=== PATIENT | female | born 1960 | race African-American/Black ===

== ENCOUNTER 2017-12-21 11:37 | Inpatient (IN) | payer OTHER ==
[2017-12-21 13:03] VITALS: BMI 18.3
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
[2017-12-21] MEDS ORDERED: MAGNESIUM CITRATE 300 ML BOTTLE PO PRN (19:10)
[2017-12-21] MEDS ORDERED: LOPERAMIDE HCL 2 MG CAPSULE PO PRN (19:10)
[2017-12-21] MEDS ORDERED: NICOTINE POLACRILEX 4 MG GUM BC PRN (19:10)
[2017-12-21] MEDS ORDERED: ACETAMINOPHEN 325 MG TABLET (FP) PO PRN (19:10)
[2017-12-21] MEDS ORDERED: MENTHOL/PHENOL 1 EACH UD MM PRN (19:10)
[2017-12-21] MEDS ORDERED: IBUPROFEN 400 MG TABLET (FP) PO PRN (19:10)
[2017-12-21] MEDS ORDERED: guaiFENesin/D-METHORPHAN HB 10 ML UNIT-DOSE CUPS PO PRN (19:10)
[2017-12-21] MEDS ORDERED: MAG HYDROX/AL HYDROX/SIMETH 30 ML UNIT-DOSE CUP PO PRN (19:10)
[2017-12-21] MEDS ORDERED: P-EPHED 60MG/TRIPROLIDI 2.5MG TABLET PO PRN (19:10)
[2017-12-21] MEDS ORDERED: hydrOXYzine PAMOATE 50 MG CAPSULE (FP) PO PRN (19:10)
[2017-12-21] MEDS ORDERED: chlordiazePOXIDE HCL 25 MG CAPSULE PO PRN (19:10)
[2017-12-21] MEDS ORDERED: chlordiazePOXIDE HCL 25 MG CAPSULE PO ONE (19:10)
[2017-12-21] MEDS ORDERED: MAGNESIUM HYDROX 2400MG/30ML ORAL SUSPENSION 30 ML CUP PO PRN (19:10)
[2017-12-21] MEDS: chlordiazePOXIDE HCL 25 MG CAPSULE PO SCH (23:27)
[2017-12-21] MEDS: cloNIDine HCL 0.1 MG TABLET PO SCH (23:27)
[2017-12-21] MEDS: ALBUTEROL SO4 18 GM HFA INHALER IH SCH (23:28)
[2017-12-21] MEDS: THIAMINE HCL 100 MG TABLET (FP) PO SCH (23:28)
[2017-12-21 23:32] LABS: URINE APPEARANCE CLEAR; URINE BILIRUBIN NEGATIVE (NEGATIVE); URINE BLOOD NEGATIVE (NEGATIVE); URINE COLOR YELLOW; URINE GLUCOSE (UA) NEGATIVE (NEGATIVE); URINE KETONE NEGATIVE (NEGATIVE); URINE LEUK ESTERASE NEGATIVE (NEGATIVE); URINE NITRITE NEGATIVE (NEGATIVE); URINE UROBILINOGEN NEGATIVE mg/dL (0.2-1.0)
[2017-12-21 23:51] LABS: URINE PROTEIN 1+ (NEGATIVE)
[2017-12-21 23:58] LABS: EPI CELLS RARE /HPF (FEW); URINE BACTERIA RARE /hpf (NONE SEEN)
[2017-12-22] MEDS: chlordiazePOXIDE HCL 25 MG CAPSULE PO SCH ×5 (05:41→22:27)
[2017-12-22] MEDS: ALBUTEROL SO4 18 GM HFA INHALER IH SCH ×5 (05:41→22:27)
[2017-12-22] MEDS: amLODIPine BESYLATE 10 MG TABLET (FP) PO SCH (09:11)
[2017-12-22] MEDS: cloNIDine HCL 0.1 MG TABLET PO SCH ×2 (09:11→22:27)
[2017-12-22 10:03] LABS: HEMATOCRIT 38.4 % (32.4-45.2); HEMOGLOBIN 12.8 GM/dL (10.7-15.3); MCH 34.1 pg (25.7-33.7); MCHC 33.4 g/dl (32.0-36.0); MEAN CELL VOLUME 102.2 fl (80-96); MEAN PLT VOLUME 9.9 fl (7.5-11.1); PLATELET COUNT 122 K/MM3 (134-434); RBC 3.75 M/mm3 (3.60-5.2); RDW 12.2 % (11.6-15.6); WHITE BLOOD COUNT 4.9 K/mm3 (4.0-10.0)
[2017-12-22 10:17] LABS: CHLORIDE 104 mmol/L (98-107); POTASSIUM 3.9 mmol/L (3.5-5.1); SODIUM 140 mmol/L (136-145)
[2017-12-22 10:36] LABS: ALBUMIN 2.9 g/dl (3.4-5.0); ALK PHOS 66 U/L (45-117); ANION GAP 7 (8-16); BILIRUBIN,TOTAL 0.5 mg/dL (0.2-1.0); BLOOD UREA NITROGEN 19 mg/dL (7-18); CALCIUM 8.1 mg/dL (8.5-10.1); CO2 29 mmol/L (21-32); CREATININE 1.1 mg/dL (0.55-1.02); GLUCOSE,RANDOM 96 mg/dL (74-106); SGOT/AST 52 U/L (15-37); SGPT/ALT 47 U/L (12-78); TOT PROT 8.1 g/dl (6.4-8.2)
[2017-12-22] MEDS: ATAZANAVIR SO4 300 MG CAPSULE PO SCH (10:59)
[2017-12-22] MEDS: PRENATAL VITAMINS W/ FOLIC ACID TABLET (FP) PO SCH (10:59)
[2017-12-22] MEDS: NICOTINE 21 MG/24 HOURS TOPICAL PATCH TD SCH (11:00)
[2017-12-22] MEDS: EMTRICITABINE 200MG/TENOFOVIR 300MG PO SCH (11:04)
[2017-12-22] MEDS: RITONAVIR 100 MG TABLET PO SCH (11:04)
--- NOTE | 2017-12-22 12:24 | EKG ---
Test Reason : Blood Pressure : / mmHG Vent. Rate : 067 BPM Atrial Rate : 067 BPM P-R Int : 130 ms QRS Dur : 102 ms QT Int : 458 ms P-R-T Axes : 070 058 069 degrees QTc Int : 483 ms SINUS RHYTHM WITH OCCASIONAL PREMATURE VENTRICULAR COMPLEXES INCOMPLETE RIGHT BUNDLE BRANCH BLOCK PROLONGED QT ABNORMAL ECG Confirmed by MD DOROTHY, SHERRELL ([id number]) on 12/22/2017 12:24:30 PM Referred By: Confirmed By:SHERRELL DE LA CRUZ MD
--- NOTE | 2017-12-22 12:27 | EKG ---
Test Reason : Blood Pressure : / mmHG Vent. Rate : 053 BPM Atrial Rate : 053 BPM P-R Int : 138 ms QRS Dur : 078 ms QT Int : 454 ms P-R-T Axes : 065 059 043 degrees QTc Int : 426 ms SINUS BRADYCARDIA NONSPECIFIC T WAVE ABNORMALITY ABNORMAL ECG NO PREVIOUS ECGS AVAILABLE Confirmed by MD DOROTHY, SHERRELL ([id number]) on 12/22/2017 12:26:50 PM Referred By: Confirmed By:SHERRELL DE LA CRUZ MD
[2017-12-22] MEDS ORDERED: METHADONE HCL 10 MG TABLET (FOR DETOX USE ONLY) PO ONE (13:10)
--- NOTE | 2017-12-22 13:19 | PN ---
[facility] CIWA - CIWA Score Nausea/Vomitin Muscle Tremors: 3 Anxiety: 3 Agitation: 4-Moderately Restless Paroxysmal Sweats: 3 Orientation: 0-Oriented Tacttile Disturbances: 0-None Auditory Disturbances: 0-None Visual Disturbances: 0-None Headache: 0-None Present CIWA-Ar Total Score: 16 S COWS - Scale Resting Pulse: 0= [place] 80 or Below Sweatin=Flushed/Facial Moisture Restless Observation: 3= Extraneous Movement Pupil Size: 0= Normal to Room Light Bone or Joint Aches: 1= Mild Discomfort Runny Nose/ Eye Tearin= Nasal Congestion GI Upset > 30mins: 1= Stomach Cramp Tremor Observation of Outstretched Hands: 2= Slight Tremor Visible Yawning Observation: 0= None Anxiety or Irritability: 2=Irritable/Anxious Goose Flesh Skin: 0=Smooth Skin COWS Score: 12 [facility] Progress Note (SOAP) Subjective: anxious tremors restless Objective: 12/22/17 13:17 Vital Signs Temperature 97.9 F 12/22/17 11:15 Pulse Rate 79 12/22/17 11:15 Respiratory Rate 20 12/22/17 11:15 Blood Pressure 148/108 12/22/17 11:15 O2 Sat by Pulse Oximetry (%) Laboratory Last Values WBC 4.9 K/mm3 (4.0-10.0) 12/22/17 06:06 RBC 3.75 M/mm3 (3.60-5.2) 12/22/17 06:06 Hgb 12.8 GM/dL (10.7-15.3) 12/22/17 06:06 Hct 38.4 % (32.4-45.2) 12/22/17 06:06 MCV 102.2 fl (80-96) H 12/22/17 06:06 MCH 34.1 pg (25.7-33.7) H 12/22/17 06:06 MCHC 33.4 g/dl (32.0-36.0) 12/22/17 06:06 RDW 12.2 % (11.6-15.6) 12/22/17 06:06 Plt Count 122 K/MM3 (134-434) L 12/22/17 06:06 MPV 9.9 fl (7.5-11.1) D 12/22/17 06:06 Sodium 140 mmol/L (136-145) 12/22/17 06:06 Potassium 3.9 mmol/L (3.5-5.1) 12/22/17 06:06 Chloride 104 mmol/L (98-107) 12/22/17 06:06 Carbon Dioxide 29 mmol/L (21-32) 12/22/17 06:06 Anion Gap 7 (8-16) L 12/22/17 06:06 BUN 19 mg/dL (7-18) H 12/22/17 06:06 Creatinine 1.1 mg/dL (0.55-1.02) H 12/22/17 06:06 Creat Clearance w eGFR 51.02 (>60) 12/22/17 06:06 Random Glucose 96 mg/dL (74-106) 12/22/17 06:06 Calcium 8.1 mg/dL (8.5-10.1) L 12/22/17 06:06 Total Bilirubin 0.5 mg/dL (0.2-1.0) 12/22/17 06:06 AST 52 U/L (15-37) H 12/22/17 06:06 ALT 47 U/L (12-78) 12/22/17 06:06 Alkaline Phosphatase 66 U/L (45-117) 12/22/17 06:06 Total Protein 8.1 g/dl (6.4-8.2) 12/22/17 06:06 Albumin 2.9 g/dl (3.4-5.0) L 12/22/17 06:06 Urine Color Yellow 12/21/17 23:13 Urine Appearance Clear 12/21/17 23:13 Urine pH 5.0 (5.0-8.0) 12/21/17 23:13 Ur Specific [place] 1.010 (1.001-1.035) 12/21/17 23:13 Urine Protein 1+ (NEGATIVE) H 12/21/17 23:13 Urine Glucose (UA) Negative (NEGATIVE) 12/21/17 23:13 Urine Ketones Negative (NEGATIVE) 12/21/17 23:13 Urine Blood Negative (NEGATIVE) 12/21/17 23:13 Urine Nitrite Negative (NEGATIVE) 12/21/17 23:13 Urine Bilirubin Negative (NEGATIVE) 12/21/17 23:13 Urine Urobilinogen Negative mg/dL (0.2-1.0) 12/21/17 23:13 Ur Leukocyte Esterase Negative (NEGATIVE) 12/21/17 23:13 Urine WBC (Auto) 2 /hpf (3-5) 12/21/17 23:13 Urine RBC (Auto) 1 /hpf (0-3) 12/21/17 23:13 Ur Epithelial Cells Rare /HPF (FEW) 12/21/17 23:13 Urine Bacteria Rare /hpf (NONE SEEN) 12/21/17 23:13 RPR Titer Nonreactive (NONREACTIVE) 12/22/17 06:06 labs noted. Assessment: 12/22/17 13:18 withdrawal sx Plan: continue detox methadone regime included, amended as necessary repeat Bp
--- NOTE | 2017-12-22 17:59 | CONSULT ---
[facility] Psychiatric Consult - Data Date of interview: 12/22/17 Admission source: [facility] Identifying data: Readmission to [facility] for this 57 y/o AA female seeking detox treatment on for alcohol and opioid dependence.Patient is , a mother of four,domiciled,unemployed and supported on SSI benefits. Substance Abuse History: Confirmed by patient in this session.Details in current [facility] report : Smoking history: Current every day smoker. Have you smoked in the past 12 months: Yes. Aproximately how many cigarettes per day: 20. Hx Chewing Tobacco Use: No. Initiated information on smoking cessation: Yes. 'Breaking Loose' booklet given: 12/21/17. - Substance & Tx. History. Hx Alcohol Use: Yes. Hx Substance Use: Yes. Substance Use Type: Heroin. Hx Substance Use Treatment: Yes (Last tx at [facility] 2012). - Substances Abused. Alcohol. Route: Oral. Frequency: Daily. Amount used: BEER- 3 SIX PACKS,. Age of first use: 14. Date of Last Use: 12/21/17. Heroin. Route: Inhalation. Frequency: Daily. Amount used: 12 BAGS. Age of first use: 12. Date of Last Use: 12/21/17 Medical History: Hepatitis C,HIV infection (on ART medications),hypertension, bronchial asthma,lower back pain and a history of positive PPD.Noted report of cholecystectomy. Psychiatric History: History of multiple psychiatric hospitalizations ([facility]) .Diagnosed with Bipolar Disorder.Patient declares that she has not been rehospitalizaed for many years.Last took psychotropic medications (zoloft, olanzapine) six years ago,according to own account.Ms Monroy denies history of suicide attempts. Physical/Sexual Abuse/Trauma History: Patient denies. Additional Comment: Urine Drug Screen Results: OPI-Opiates, MTD-Methadone, TCA- Tricyclic Antidepressant, OXY-Oxycodone.Noted. Mental Status Exam - Mental Status Exam Alert and Oriented to: Time, Place Cognitive Function: Grossly Intact Patient Appearance: Well Groomed Mood: Hopeful, Euthymic Affect: Appropriate, Normal Range Patient Behavior: Appropriate, Cooperative Speech Pattern: Clear, Appropriate Voice Loudness: Normal Thought Process: Intact, Goal Oriented Thought Disorder: Not Present Hallucinations: Denies Suicidal Ideation: Denies Homicidal Ideation: Denies Insight/Judgement: Poor Sleep: Poorly, Difficulty falling asleep (reauests ambien) Appetite: Fair, Weight loss Muscle strength/Tone: Normal Gait/Station: Normal Psychiatric Findings - Problem List ([place] 1, 2,3) (1) Alcohol dependence with uncomplicated withdrawal Current Visit: Yes Status: Acute (2) Opioid dependence with withdrawal Current Visit: Yes Status: Acute (3) Nicotine dependence Current Visit: Yes Status: Acute (4) Bipolar disorder Current Visit: No Status: Chronic Comment: History.Off medications for past six years.Lost to follow-up.Currently asymptomatic.Baseline. (5) Substance induced mood disorder Current Visit: Yes Status: Acute (6) Insomnia Current Visit: Yes Status: Acute - Initial Treatment Plan Initial Treatment Plan: Psychoeducation.Sleep hygiene discussed.Detoxification in progress.Ambien 5 mg po hs prn.Patient informed of potential for parasomnias (sleep-walking).Ms Monroy is in agreement with this careplan.Observation.
[2017-12-22] MEDS: ZOLPIDEM TARTRATE 5 MG TABLET PO PRN (22:27)
[2017-12-22] MEDS: LISINOPRIL 10 MG TABLET (FP) PO SCH (22:27)
[2017-12-22] MEDS: THIAMINE HCL 100 MG TABLET (FP) PO SCH (22:31)
[2017-12-23] MEDS: chlordiazePOXIDE HCL 25 MG CAPSULE PO SCH ×3 (05:48→17:08)
[2017-12-23] MEDS: ALBUTEROL SO4 18 GM HFA INHALER IH SCH ×5 (05:48→22:47)
[2017-12-23] MEDS: cloNIDine HCL 0.1 MG TABLET PO SCH ×2 (05:58→17:10)
[2017-12-23] MEDS ORDERED: METHADONE HCL 5 MG TABLET (FOR DETOX USE ONLY) PO ONE (10:00)
--- NOTE | 2017-12-23 10:11 | PN ---
[facility] CIWA - CIWA Score Nausea/Vomitin-Mild Nausea/No Vomiting Muscle Tremors: 3 Anxiety: 3 Agitation: 3 Paroxysmal Sweats: 1-Minimal Palms Moist Orientation: 0-Oriented Tacttile Disturbances: 0-None Auditory Disturbances: 0-None Visual Disturbances: 0-None Headache: 0-None Present CIWA-Ar Total Score: 11 S COWS - Scale Resting Pulse: 0= [place] 80 or Below Sweatin= Chills/Flushing Restless Observation: 0= Sits Still Pupil Size: 0= Normal to Room Light Bone or Joint Aches: 1= Mild Discomfort Runny Nose/ Eye Tearin= Nasal Congestion GI Upset > 30mins: 1= Stomach Cramp Tremor Observation of Outstretched Hands: 1= Tremor [place], Not Seen Yawning Observation: 2= >3x During Session Anxiety or Irritability: 1=Feels Anxious/Irritable Goose Flesh Skin: 0=Smooth Skin COWS Score: 8 [facility] Progress Note (SOAP) Subjective: joint aches tremor sweat anxiety Objective: 12/23/17 10:11 Vital Signs Temperature 97.9 F 12/23/17 06:00 Pulse Rate 54 L 12/23/17 06:00 Respiratory Rate 16 12/23/17 06:00 Blood Pressure 185/111 12/23/17 06:00 O2 Sat by Pulse Oximetry (%) Laboratory Last Values WBC 4.9 K/mm3 (4.0-10.0) 12/22/17 06:06 RBC 3.75 M/mm3 (3.60-5.2) 12/22/17 06:06 Hgb 12.8 GM/dL (10.7-15.3) 12/22/17 06:06 Hct 38.4 % (32.4-45.2) 12/22/17 06:06 MCV 102.2 fl (80-96) H 12/22/17 06:06 MCH 34.1 pg (25.7-33.7) H 12/22/17 06:06 MCHC 33.4 g/dl (32.0-36.0) 12/22/17 06:06 RDW 12.2 % (11.6-15.6) 12/22/17 06:06 Plt Count 122 K/MM3 (134-434) L 12/22/17 06:06 MPV 9.9 fl (7.5-11.1) D 12/22/17 06:06 Sodium 140 mmol/L (136-145) 12/22/17 06:06 Potassium 3.9 mmol/L (3.5-5.1) 12/22/17 06:06 Chloride 104 mmol/L (98-107) 12/22/17 06:06 Carbon Dioxide 29 mmol/L (21-32) 12/22/17 06:06 Anion Gap 7 (8-16) L 12/22/17 06:06 BUN 19 mg/dL (7-18) H 12/22/17 06:06 Creatinine 1.1 mg/dL (0.55-1.02) H 12/22/17 06:06 Creat Clearance w eGFR 51.02 (>60) 12/22/17 06:06 Random Glucose 96 mg/dL (74-106) 12/22/17 06:06 Calcium 8.1 mg/dL (8.5-10.1) L 12/22/17 06:06 Total Bilirubin 0.5 mg/dL (0.2-1.0) 12/22/17 06:06 AST 52 U/L (15-37) H 12/22/17 06:06 ALT 47 U/L (12-78) 12/22/17 06:06 Alkaline Phosphatase 66 U/L (45-117) 12/22/17 06:06 Total Protein 8.1 g/dl (6.4-8.2) 12/22/17 06:06 Albumin 2.9 g/dl (3.4-5.0) L 12/22/17 06:06 Urine Color Yellow 12/21/17 23:13 Urine Appearance Clear 12/21/17 23:13 Urine pH 5.0 (5.0-8.0) 12/21/17 23:13 Ur Specific [place] 1.010 (1.001-1.035) 12/21/17 23:13 Urine Protein 1+ (NEGATIVE) H 12/21/17 23:13 Urine Glucose (UA) Negative (NEGATIVE) 12/21/17 23:13 Urine Ketones Negative (NEGATIVE) 12/21/17 23:13 Urine Blood Negative (NEGATIVE) 12/21/17 23:13 Urine Nitrite Negative (NEGATIVE) 12/21/17 23:13 Urine Bilirubin Negative (NEGATIVE) 12/21/17 23:13 Urine Urobilinogen Negative mg/dL (0.2-1.0) 12/21/17 23:13 Ur Leukocyte Esterase Negative (NEGATIVE) 12/21/17 23:13 Urine WBC (Auto) 2 /hpf (3-5) 12/21/17 23:13 Urine RBC (Auto) 1 /hpf (0-3) 12/21/17 23:13 Ur Epithelial Cells Rare /HPF (FEW) 12/21/17 23:13 Urine Bacteria Rare /hpf (NONE SEEN) 12/21/17 23:13 RPR Titer Nonreactive (NONREACTIVE) 12/22/17 06:06 lab noted Assessment: 12/23/17 10:11 withdrawal sx Plan: continue detox
[2017-12-23] MEDS: amLODIPine BESYLATE 10 MG TABLET (FP) PO SCH (10:48)
[2017-12-23] MEDS: NICOTINE 21 MG/24 HOURS TOPICAL PATCH TD SCH (10:48)
[2017-12-23] MEDS: PRENATAL VITAMINS W/ FOLIC ACID TABLET (FP) PO SCH (10:48)
[2017-12-23] MEDS: LISINOPRIL 10 MG TABLET (FP) PO SCH ×2 (10:50→22:47)
[2017-12-23] MEDS: ATAZANAVIR SO4 300 MG CAPSULE PO SCH (10:51)
[2017-12-23] MEDS: EMTRICITABINE 200MG/TENOFOVIR 300MG PO SCH (10:51)
[2017-12-23] MEDS: RITONAVIR 100 MG TABLET PO SCH (10:51)
--- NOTE | 2017-12-23 11:43 | EKG ---
Test Reason : Blood Pressure : / mmHG Vent. Rate : 078 BPM Atrial Rate : 078 BPM P-R Int : 124 ms QRS Dur : 080 ms QT Int : 414 ms P-R-T Axes : 076 063 -24 degrees QTc Int : 471 ms SINUS RHYTHM WITH FREQUENT PREMATURE VENTRICULAR COMPLEXES MODERATE VOLTAGE CRITERIA FOR LVH, MAY BE NORMAL VARIANT ABNORMAL QRS-T ANGLE, CONSIDER PRIMARY T WAVE ABNORMALITY ABNORMAL ECG Confirmed by MD DOROTHY, SHERRELL ([id number]) on 12/23/2017 11:43:26 AM Referred By: Confirmed By:SHERRELL DE LA CRUZ MD
[2017-12-23] MEDS ORDERED: LISINOPRIL 10 MG TABLET (FP) PO ONE (17:15)
[2017-12-23] MEDS: FUROSEMIDE 40 MG TABLET (FP) PO SCH (17:50)
[2017-12-23] MEDS: THIAMINE HCL 100 MG TABLET (FP) PO SCH (22:47)
[2017-12-23] MEDS: chlordiazePOXIDE 5 MG CAPSULE PO SCH (22:48)
[2017-12-23] MEDS: ZOLPIDEM TARTRATE 5 MG TABLET PO PRN (22:50)
[2017-12-24] MEDS: chlordiazePOXIDE 5 MG CAPSULE PO SCH ×3 (06:00→17:41)
[2017-12-24] MEDS: cloNIDine HCL 0.1 MG TABLET PO SCH ×2 (06:34→17:41)
[2017-12-24] MEDS: ALBUTEROL SO4 18 GM HFA INHALER IH SCH ×5 (06:34→22:34)
[2017-12-24] MEDS ORDERED: METHADONE HCL 5 MG TABLET (FOR DETOX USE ONLY) PO ONE (10:00)
[2017-12-24] MEDS: PRENATAL VITAMINS W/ FOLIC ACID TABLET (FP) PO SCH (10:47)
[2017-12-24] MEDS: amLODIPine BESYLATE 10 MG TABLET (FP) PO SCH (10:47)
[2017-12-24] MEDS: FUROSEMIDE 40 MG TABLET (FP) PO SCH (10:48)
[2017-12-24] MEDS: NICOTINE 21 MG/24 HOURS TOPICAL PATCH TD SCH (10:51)
[2017-12-24] MEDS: LISINOPRIL 10 MG TABLET (FP) PO SCH ×2 (10:51→22:25)
[2017-12-24] MEDS: ATAZANAVIR SO4 300 MG CAPSULE PO SCH (10:53)
[2017-12-24] MEDS: RITONAVIR 100 MG TABLET PO SCH (10:53)
[2017-12-24] MEDS: EMTRICITABINE 200MG/TENOFOVIR 300MG PO SCH (10:53)
--- NOTE | 2017-12-24 14:33 | PN ---
[facility] Progress Note (SOAP) Subjective: sleep disturbance shakes Objective: 12/24/17 14:31 A & O x 3 ambulating steadily on unit no acute distress noted Vital Signs Temperature 98.3 F 12/24/17 10:38 Pulse Rate 88 12/24/17 10:38 Respiratory Rate 17 12/24/17 10:38 Blood Pressure 150/80 12/24/17 10:38 O2 Sat by Pulse Oximetry (%) Assessment: 12/24/17 14:32 withdrawal sx Plan: continue detox
[2017-12-24] MEDS: THIAMINE HCL 100 MG TABLET (FP) PO SCH (22:25)
[2017-12-24] MEDS: chlordiazePOXIDE HCL 10 MG CAPSULE PO SCH (22:26)
[2017-12-24] MEDS: ZOLPIDEM TARTRATE 5 MG TABLET PO PRN (22:26)
[2017-12-25] MEDS: chlordiazePOXIDE HCL 10 MG CAPSULE PO SCH ×2 (05:25→10:07)
[2017-12-25] MEDS: cloNIDine HCL 0.1 MG TABLET PO SCH (05:25)
[2017-12-25] MEDS: ALBUTEROL SO4 18 GM HFA INHALER IH SCH ×2 (05:26→10:11)
[2017-12-25] MEDS ORDERED: METHADONE HCL 5 MG TABLET (FOR DETOX USE ONLY) PO ONE (09:14)
[2017-12-25] MEDS ORDERED: METHADONE HCL 10 MG TABLET (FOR DETOX USE ONLY) PO ONE (10:00)
[2017-12-25] MEDS: PRENATAL VITAMINS W/ FOLIC ACID TABLET (FP) PO SCH (10:06)
[2017-12-25] MEDS: LISINOPRIL 10 MG TABLET (FP) PO SCH (10:06)
[2017-12-25] MEDS: FUROSEMIDE 40 MG TABLET (FP) PO SCH (10:07)
[2017-12-25] MEDS: NICOTINE 21 MG/24 HOURS TOPICAL PATCH TD SCH (10:08)
[2017-12-25] MEDS: amLODIPine BESYLATE 10 MG TABLET (FP) PO SCH (10:11)
[2017-12-25] MEDS: RITONAVIR 100 MG TABLET PO SCH (10:11)
[2017-12-25] MEDS: ATAZANAVIR SO4 300 MG CAPSULE PO SCH (10:11)
[2017-12-25] MEDS: EMTRICITABINE 200MG/TENOFOVIR 300MG PO SCH (10:11)
--- NOTE | 2017-12-25 11:01 | DS ---
[facility] Detox Discharge Summary Admission Date: 12/21/17 Discharge Date: 12/25/17 - History Present History: Alcohol Dependence, Opioid Dependence - Physical Exam Results Vital Signs: Vital Signs Temperature 97.1 F L 12/25/17 09:48 Pulse Rate 68 12/25/17 09:48 Respiratory Rate 18 12/25/17 09:48 Blood Pressure 143/83 12/25/17 09:48 O2 Sat by Pulse Oximetry (%) Pertinent Admission Physical Exam Findings: withdrawal sx Vital Signs Temperature 97.1 F L 12/25/17 09:48 Pulse Rate 68 12/25/17 09:48 Respiratory Rate 18 12/25/17 09:48 Blood Pressure 143/83 12/25/17 09:48 O2 Sat by Pulse Oximetry (%) Laboratory Last Values WBC 4.9 K/mm3 (4.0-10.0) 12/22/17 06:06 RBC 3.75 M/mm3 (3.60-5.2) 12/22/17 06:06 Hgb 12.8 GM/dL (10.7-15.3) 12/22/17 06:06 Hct 38.4 % (32.4-45.2) 12/22/17 06:06 MCV 102.2 fl (80-96) H 12/22/17 06:06 MCH 34.1 pg (25.7-33.7) H 12/22/17 06:06 MCHC 33.4 g/dl (32.0-36.0) 12/22/17 06:06 RDW 12.2 % (11.6-15.6) 12/22/17 06:06 Plt Count 122 K/MM3 (134-434) L 12/22/17 06:06 MPV 9.9 fl (7.5-11.1) D 12/22/17 06:06 Sodium 140 mmol/L (136-145) 12/22/17 06:06 Potassium 3.9 mmol/L (3.5-5.1) 12/22/17 06:06 Chloride 104 mmol/L (98-107) 12/22/17 06:06 Carbon Dioxide 29 mmol/L (21-32) 12/22/17 06:06 Anion Gap 7 (8-16) L 12/22/17 06:06 BUN 19 mg/dL (7-18) H 12/22/17 06:06 Creatinine 1.1 mg/dL (0.55-1.02) H 12/22/17 06:06 Creat Clearance w eGFR 51.02 (>60) 12/22/17 06:06 Random Glucose 96 mg/dL (74-106) 12/22/17 06:06 Calcium 8.1 mg/dL (8.5-10.1) L 12/22/17 06:06 Total Bilirubin 0.5 mg/dL (0.2-1.0) 12/22/17 06:06 AST 52 U/L (15-37) H 12/22/17 06:06 ALT 47 U/L (12-78) 12/22/17 06:06 Alkaline Phosphatase 66 U/L (45-117) 12/22/17 06:06 Total Protein 8.1 g/dl (6.4-8.2) 12/22/17 06:06 Albumin 2.9 g/dl (3.4-5.0) L 12/22/17 06:06 Urine Color Yellow 12/21/17 23:13 Urine Appearance Clear 12/21/17 23:13 Urine pH 5.0 (5.0-8.0) 12/21/17 23:13 Ur Specific [place] 1.010 (1.001-1.035) 12/21/17 23:13 Urine Protein 1+ (NEGATIVE) H 12/21/17 23:13 Urine Glucose (UA) Negative (NEGATIVE) 12/21/17 23:13 Urine Ketones Negative (NEGATIVE) 12/21/17 23:13 Urine Blood Negative (NEGATIVE) 12/21/17 23:13 Urine Nitrite Negative (NEGATIVE) 12/21/17 23:13 Urine Bilirubin Negative (NEGATIVE) 12/21/17 23:13 Urine Urobilinogen Negative mg/dL (0.2-1.0) 12/21/17 23:13 Ur Leukocyte Esterase Negative (NEGATIVE) 12/21/17 23:13 Urine WBC (Auto) 2 /hpf (3-5) 12/21/17 23:13 Urine RBC (Auto) 1 /hpf (0-3) 12/21/17 23:13 Ur Epithelial Cells Rare /HPF (FEW) 12/21/17 23:13 Urine Bacteria Rare /hpf (NONE SEEN) 12/21/17 23:13 RPR Titer Nonreactive (NONREACTIVE) 12/22/17 06:06 lab noted - Treatment Hospital Course: Detox Protocol Followed, Detoxed Safely, Responded well, Discharged Condition Good, Rehab Referral Accepted Patient has Accepted a Rehab Referral to: as per counselor arranged - Medication Discharge Medications: Ambulatory Orders Emtricitabine/Tenofovir [Truvada -] 1 tab PO DAILY 09/03/13 Olanzapine [Zyprexa] 20 mg PO HS 09/03/13 Clonidine HCl [Catapres -] 0.2 mg PO BID #0 tablet 09/08/13 Albuterol Sulfate Inhaler - [Ventolin HFA Inhaler -] 2 inh PO Q4H #1 inh Amlodipine Besylate [Norvasc -] 10 mg PO DAILY #30 tablet 09/15/13 Atazanavir [Reyataz -] 300 mg PO DAILY #14 capsule 09/15/13 Emtricitabine/Tenofovir [Truvada -] 1 tab PO DAILY #14 tablet 09/15/13 Olanzapine [ZyPREXA -] 20 mg PO HS #30 tablet 09/15/13 Ritonavir [Norvir] 100 mg PO DAILY #14 09/15/13 Sertraline HCl [Zoloft -] 100 mg PO DAILY #30 tablet 09/15/13 - Diagnosis (1) Alcohol dependence with uncomplicated withdrawal Current Visit: Yes Status: Acute (2) Nicotine dependence Current Visit: Yes Status: Acute Qualifiers: Nicotine product type: cigarettes Substance use status: in withdrawal Qualified Code(s): F17.213 - Nicotine dependence, cigarettes, with withdrawal (3) Opioid dependence with withdrawal Current Visit: Yes Status: Acute (4) Substance induced mood disorder Current Visit: Yes Status: Suspected (5) Essential hypertension Current Visit: Yes Status: Chronic (6) HIV (human immunodeficiency virus infection) Current Visit: Yes Status: Chronic - AMA Did Patient Leave Against Medical Advice: No
[2017-12-25 14:34] VITALS: BP 119/71; PULSE 74; TEMP 98
[2017-12-26] MEDS ORDERED: METHADONE HCL 5 MG TABLET (FOR DETOX USE ONLY) PO ONE (06:00)
== END 2017-12-25 02:00 | disposition other institution (70) | DRG 773 ==
LOC: YASAS 11:37 → Y6N 17:30
PROVIDERS: ADMIT Internal Medicine; ATTEND Internal Medicine
PROC: HZ2ZZZZ Detoxification Services for Substance Abuse Treatment (ICD-10-PCS; principal; 2017-12-21)
DX: F11.23 Opioid dependence with withdrawal (principal); F10.230 Alcohol dependence with withdrawal, uncomplicated; F17.213 Nicotine dependence, cigarettes, with withdrawal; F19.24 Other psychoactive substance dependence with psychoactive substance-induced mood disorder; F31.9 Bipolar disorder, unspecified; I10 Essential (primary) hypertension; Z21 Asymptomatic human immunodeficiency virus [HIV] infection status; G47.00 Insomnia, unspecified; J45.909 Unspecified asthma, uncomplicated
CPT/HCPCS: 36415; 71046-TC; 80053; 81003; 81015; 85027; 86593; 93005; 93010; J0735

== ENCOUNTER 2017-12-25 14:18 | Inpatient (IN) | payer OTHER ==
--- NOTE | 2017-12-25 15:32 | HP ---
[facility] Rehab Assess/Revision - Admission History Admitted to Rehab from: [facility] Date of Admission to Rehab: 12/25/2017 - Vital signs Vital Signs: vital signs reviewed - Findings Detox History & Physical reviewed: Yes Concur with findings: Yes Inpatient Rehab Admission - Initial Determination Are CD services needed?: Yes Free of communicable disease: Yes Not in need of hospitalization: Yes - Rehab Admission Criteria Comorbidities: Yes Patient is meeting Inpatient Rehab admission criteria:: Yes
[2017-12-25] MEDS ORDERED: P-EPHED 60MG/TRIPROLIDI 2.5MG TABLET PO PRN (15:33)
[2017-12-25] MEDS ORDERED: MENTHOL/PHENOL 1 EACH UD MM PRN (15:33)
[2017-12-25] MEDS ORDERED: hydrOXYzine PAMOATE 50 MG CAPSULE (FP) PO PRN (15:33)
[2017-12-25] MEDS ORDERED: MAGNESIUM CITRATE 300 ML BOTTLE PO PRN (15:33)
[2017-12-25] MEDS ORDERED: guaiFENesin/D-METHORPHAN HB 10 ML UNIT-DOSE CUPS PO PRN (15:33)
[2017-12-25] MEDS ORDERED: LOPERAMIDE HCL 2 MG CAPSULE PO PRN (15:33)
[2017-12-25] MEDS ORDERED: MAGNESIUM HYDROX 2400MG/30ML ORAL SUSPENSION 30 ML CUP PO PRN (15:33)
[2017-12-25] MEDS ORDERED: ACETAMINOPHEN 325 MG TABLET (FP) PO PRN (15:33)
[2017-12-25] MEDS ORDERED: IBUPROFEN 400 MG TABLET (FP) PO PRN (15:33)
[2017-12-25] MEDS ORDERED: NICOTINE POLACRILEX 2 MG GUM BUC PRN (15:33)
[2017-12-25] MEDS ORDERED: MAG HYDROX/AL HYDROX/SIMETH 30 ML UNIT-DOSE CUP PO PRN (15:33)
[2017-12-25 15:45] VITALS: BMI 19.3
[2017-12-25] MEDS: amLODIPine BESYLATE 10 MG TABLET (FP) PO SCH (16:48)
[2017-12-25] MEDS: ALBUTEROL SO4 18 GM HFA INHALER IH SCH ×2 (16:48→21:40)
[2017-12-25] MEDS: OLANZapine 10 MG TABLET PO SCH (21:40)
[2017-12-25] MEDS: cloNIDine HCL 0.1 MG TABLET PO SCH (21:40)
[2017-12-25] MEDS: THIAMINE HCL 100 MG TABLET (FP) PO SCH (21:40)
[2017-12-25] MEDS ORDERED: traZODone HCL 50 MG TABLET (FP) PO SCH (22:00)
[2017-12-25] MEDS ORDERED: QUEtiapine FUMARATE 100 MG TABLET (FP) PO SCH (22:00)
[2017-12-26] MEDS: ALBUTEROL SO4 18 GM HFA INHALER IH SCH ×5 (00:16→18:03)
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
[2017-12-26] MEDS: SERTRALINE HCL 50 MG TABLET (FP) PO SCH (10:13)
[2017-12-26] MEDS: amLODIPine BESYLATE 10 MG TABLET (FP) PO SCH (10:13)
[2017-12-26] MEDS: cloNIDine HCL 0.1 MG TABLET PO SCH ×2 (10:13→21:29)
[2017-12-26] MEDS: NICOTINE 14 MG/24 HOURS TOPICAL PATCH TD SCH (10:13)
[2017-12-26] MEDS: PRENATAL VITAMINS W/ FOLIC ACID TABLET (FP) PO SCH (10:13)
[2017-12-26] MEDS: THIAMINE HCL 100 MG TABLET (FP) PO SCH (21:29)
[2017-12-26] MEDS: OLANZapine 10 MG TABLET PO SCH (21:29)
[2017-12-26] MEDS ORDERED: SUVOREXANT 10 MG TABLET PO PRN (22:00)
[2017-12-27] MEDS: NICOTINE 14 MG/24 HOURS TOPICAL PATCH TD SCH (10:05)
[2017-12-27] MEDS: amLODIPine BESYLATE 10 MG TABLET (FP) PO SCH (10:05)
[2017-12-27] MEDS: PRENATAL VITAMINS W/ FOLIC ACID TABLET (FP) PO SCH (10:05)
[2017-12-27] MEDS: cloNIDine HCL 0.1 MG TABLET PO SCH ×2 (10:05→21:42)
[2017-12-27] MEDS: SERTRALINE HCL 50 MG TABLET (FP) PO SCH (10:06)
[2017-12-27] MEDS: THIAMINE HCL 100 MG TABLET (FP) PO SCH (21:42)
[2017-12-27] MEDS: OLANZapine 10 MG TABLET PO SCH (21:42)
[2017-12-28] MEDS: SERTRALINE HCL 50 MG TABLET (FP) PO SCH (10:02)
[2017-12-28] MEDS: NICOTINE 14 MG/24 HOURS TOPICAL PATCH TD SCH (10:02)
[2017-12-28] MEDS: PRENATAL VITAMINS W/ FOLIC ACID TABLET (FP) PO SCH (10:02)
[2017-12-28] MEDS: amLODIPine BESYLATE 10 MG TABLET (FP) PO SCH (10:02)
[2017-12-28] MEDS: cloNIDine HCL 0.1 MG TABLET PO SCH ×2 (10:02→21:41)
--- NOTE | 2017-12-28 16:10 | PN ---
[facility] Progress Note Note: PATIENT IS TAKING TRIUMEQ DAILY,LAST 3DAYS AGO,HAS MEDICATION AT HOME,TRIUMEQ ORDERED
[2017-12-28] MEDS: THIAMINE HCL 100 MG TABLET (FP) PO SCH (21:41)
[2017-12-28] MEDS: OLANZapine 10 MG TABLET PO SCH (21:41)
[2017-12-29] MEDS: SERTRALINE HCL 50 MG TABLET (FP) PO SCH (09:59)
[2017-12-29] MEDS: cloNIDine HCL 0.1 MG TABLET PO SCH ×2 (09:59→21:31)
[2017-12-29] MEDS: amLODIPine BESYLATE 10 MG TABLET (FP) PO SCH (09:59)
[2017-12-29] MEDS: PRENATAL VITAMINS W/ FOLIC ACID TABLET (FP) PO SCH (09:59)
[2017-12-29] MEDS: NICOTINE 14 MG/24 HOURS TOPICAL PATCH TD SCH (09:59)
[2017-12-29] MEDS: ABACAVIR/DOLUTEGRAVIR/LAMIVUDI (TRIUMEQ) TABLET -NF PO SCH (10:00)
[2017-12-29] MEDS ORDERED: SUVOREXANT 10 MG TABLET PO PRN (10:12)
[2017-12-29] MEDS: THIAMINE HCL 100 MG TABLET (FP) PO SCH (21:31)
[2017-12-29] MEDS: OLANZapine 10 MG TABLET PO SCH (21:32)
[2017-12-30] MEDS: PRENATAL VITAMINS W/ FOLIC ACID TABLET (FP) PO SCH (09:37)
[2017-12-30] MEDS: NICOTINE 14 MG/24 HOURS TOPICAL PATCH TD SCH (09:37)
[2017-12-30] MEDS: SERTRALINE HCL 50 MG TABLET (FP) PO SCH (09:37)
[2017-12-30] MEDS: amLODIPine BESYLATE 10 MG TABLET (FP) PO SCH (09:37)
[2017-12-30] MEDS: cloNIDine HCL 0.1 MG TABLET PO SCH ×2 (09:37→21:11)
[2017-12-30] MEDS: ALBUTEROL SO4 18 GM HFA INHALER IH PRN (09:40)
[2017-12-30] MEDS: ABACAVIR/DOLUTEGRAVIR/LAMIVUDI (TRIUMEQ) TABLET -NF PO SCH (10:56)
[2017-12-30] MEDS: THIAMINE HCL 100 MG TABLET (FP) PO SCH (21:11)
[2017-12-30] MEDS: OLANZapine 10 MG TABLET PO SCH (21:12)
[2017-12-31] MEDS: ALBUTEROL SO4 18 GM HFA INHALER IH PRN (08:22)
[2017-12-31] MEDS: PRENATAL VITAMINS W/ FOLIC ACID TABLET (FP) PO SCH (09:47)
[2017-12-31] MEDS: amLODIPine BESYLATE 10 MG TABLET (FP) PO SCH (09:47)
[2017-12-31] MEDS: NICOTINE 14 MG/24 HOURS TOPICAL PATCH TD SCH (09:47)
[2017-12-31] MEDS: cloNIDine HCL 0.1 MG TABLET PO SCH ×2 (09:47→21:45)
[2017-12-31] MEDS: SERTRALINE HCL 50 MG TABLET (FP) PO SCH (09:47)
[2017-12-31] MEDS: ABACAVIR/DOLUTEGRAVIR/LAMIVUDI (TRIUMEQ) TABLET -NF PO SCH (09:48)
[2017-12-31] MEDS: THIAMINE HCL 100 MG TABLET (FP) PO SCH (21:45)
[2017-12-31] MEDS: OLANZapine 10 MG TABLET PO SCH (21:46)
[2018-01-01] MEDS: SERTRALINE HCL 50 MG TABLET (FP) PO SCH (09:53)
[2018-01-01] MEDS: cloNIDine HCL 0.1 MG TABLET PO SCH ×2 (09:54→21:37)
[2018-01-01] MEDS: PRENATAL VITAMINS W/ FOLIC ACID TABLET (FP) PO SCH (09:54)
[2018-01-01] MEDS: NICOTINE 14 MG/24 HOURS TOPICAL PATCH TD SCH (09:55)
[2018-01-01] MEDS: amLODIPine BESYLATE 10 MG TABLET (FP) PO SCH (10:42)
[2018-01-01] MEDS: ABACAVIR/DOLUTEGRAVIR/LAMIVUDI (TRIUMEQ) TABLET -NF PO SCH (10:43)
[2018-01-01] MEDS: ALBUTEROL SO4 18 GM HFA INHALER IH PRN (19:24)
[2018-01-01] MEDS: OLANZapine 10 MG TABLET PO SCH (21:36)
[2018-01-01] MEDS: THIAMINE HCL 100 MG TABLET (FP) PO SCH (21:37)
[2018-01-01] MEDS ORDERED: SUVOREXANT 10 MG TABLET PO PRN (22:00)
[2018-01-02] MEDS: NICOTINE 14 MG/24 HOURS TOPICAL PATCH TD SCH (10:35)
[2018-01-02] MEDS: ABACAVIR/DOLUTEGRAVIR/LAMIVUDI (TRIUMEQ) TABLET -NF PO SCH (10:35)
[2018-01-02] MEDS: amLODIPine BESYLATE 10 MG TABLET (FP) PO SCH (10:35)
[2018-01-02] MEDS: PRENATAL VITAMINS W/ FOLIC ACID TABLET (FP) PO SCH (10:35)
[2018-01-02] MEDS: SERTRALINE HCL 50 MG TABLET (FP) PO SCH (10:35)
[2018-01-02] MEDS: cloNIDine HCL 0.1 MG TABLET PO SCH ×2 (10:35→21:27)
[2018-01-02] MEDS: ALBUTEROL SO4 18 GM HFA INHALER IH PRN (11:09)
[2018-01-02] MEDS ORDERED: COLLOIDAL OATMEAL 1 BAR EACH TP PRN (17:09)
[2018-01-02] MEDS: MINERAL OIL/PETROLAT/WATER TOPICAL CREAM 113 GM JAR TP SCH (17:20)
[2018-01-02] MEDS ORDERED: ALBUTEROL SO4 2.5/IPRATROPIUM 0.5 INH SOL 3 ML VIAL.NEB. NEB ONE (18:00)
[2018-01-02] MEDS: OLANZapine 10 MG TABLET PO SCH (21:27)
[2018-01-02] MEDS: THIAMINE HCL 100 MG TABLET (FP) PO SCH (21:27)
[2018-01-03] MEDS: PRENATAL VITAMINS W/ FOLIC ACID TABLET (FP) PO SCH (09:44)
[2018-01-03] MEDS: cloNIDine HCL 0.1 MG TABLET PO SCH ×2 (09:44→21:13)
[2018-01-03] MEDS: NICOTINE 14 MG/24 HOURS TOPICAL PATCH TD SCH (09:45)
[2018-01-03] MEDS: ABACAVIR/DOLUTEGRAVIR/LAMIVUDI (TRIUMEQ) TABLET -NF PO SCH (09:45)
[2018-01-03] MEDS: SERTRALINE HCL 50 MG TABLET (FP) PO SCH (09:45)
[2018-01-03] MEDS: amLODIPine BESYLATE 10 MG TABLET (FP) PO SCH (09:45)
[2018-01-03] MEDS: MINERAL OIL/PETROLAT/WATER TOPICAL CREAM 113 GM JAR TP SCH (09:46)
[2018-01-03] MEDS ORDERED: PT OWN MED DRAWER 7, Y5N ONE (11:25)
[2018-01-03] MEDS: THIAMINE HCL 100 MG TABLET (FP) PO SCH (21:13)
[2018-01-03] MEDS: OLANZapine 10 MG TABLET PO SCH (21:13)
[2018-01-04] MEDS: cloNIDine HCL 0.1 MG TABLET PO SCH ×2 (10:36→21:37)
[2018-01-04] MEDS: amLODIPine BESYLATE 10 MG TABLET (FP) PO SCH (10:36)
[2018-01-04] MEDS: PRENATAL VITAMINS W/ FOLIC ACID TABLET (FP) PO SCH (10:36)
[2018-01-04] MEDS: SERTRALINE HCL 50 MG TABLET (FP) PO SCH (10:36)
[2018-01-04] MEDS: NICOTINE 14 MG/24 HOURS TOPICAL PATCH TD SCH (10:37)
[2018-01-04] MEDS: ABACAVIR/DOLUTEGRAVIR/LAMIVUDI (TRIUMEQ) TABLET -NF PO SCH (10:40)
[2018-01-04] MEDS: MINERAL OIL/PETROLAT/WATER TOPICAL CREAM 113 GM JAR TP SCH (10:50)
[2018-01-04] MEDS ORDERED: PT OWN MED DRAWER 7, Y5N ONE (15:05)
[2018-01-04] MEDS: ALBUTEROL SO4 2.5/IPRATROPIUM 0.5 INH SOL 3 ML VIAL.NEB. NEB PRN (19:09)
[2018-01-04] MEDS: THIAMINE HCL 100 MG TABLET (FP) PO SCH (21:38)
[2018-01-04] MEDS: OLANZapine 10 MG TABLET PO SCH (21:38)
[2018-01-04] MEDS ORDERED: SUVOREXANT 10 MG TABLET PO PRN (22:00)
[2018-01-05] MEDS ORDERED: PT OWN MED DRAWER 7, Y5N ONE (08:57)
[2018-01-05] MEDS: cloNIDine HCL 0.1 MG TABLET PO SCH ×2 (09:53→21:27)
[2018-01-05] MEDS: SERTRALINE HCL 50 MG TABLET (FP) PO SCH (09:53)
[2018-01-05] MEDS: amLODIPine BESYLATE 10 MG TABLET (FP) PO SCH (09:53)
[2018-01-05] MEDS: PRENATAL VITAMINS W/ FOLIC ACID TABLET (FP) PO SCH (09:53)
[2018-01-05] MEDS: NICOTINE 14 MG/24 HOURS TOPICAL PATCH TD SCH (09:54)
[2018-01-05] MEDS: MINERAL OIL/PETROLAT/WATER TOPICAL CREAM 113 GM JAR TP SCH (09:54)
[2018-01-05] MEDS: ABACAVIR/DOLUTEGRAVIR/LAMIVUDI (TRIUMEQ) TABLET -NF PO SCH (09:56)
[2018-01-05] MEDS: THIAMINE HCL 100 MG TABLET (FP) PO SCH (21:27)
[2018-01-05] MEDS: OLANZapine 10 MG TABLET PO SCH (21:27)
[2018-01-06] MEDS ORDERED: PT OWN MED DRAWER 7, Y5N ONE (08:41)
[2018-01-06] MEDS: SERTRALINE HCL 50 MG TABLET (FP) PO SCH (09:45)
[2018-01-06] MEDS: cloNIDine HCL 0.1 MG TABLET PO SCH ×2 (09:45→21:26)
[2018-01-06] MEDS: amLODIPine BESYLATE 10 MG TABLET (FP) PO SCH (09:45)
[2018-01-06] MEDS: PRENATAL VITAMINS W/ FOLIC ACID TABLET (FP) PO SCH (09:45)
[2018-01-06] MEDS: ABACAVIR/DOLUTEGRAVIR/LAMIVUDI (TRIUMEQ) TABLET -NF PO SCH (09:46)
[2018-01-06] MEDS: NICOTINE 14 MG/24 HOURS TOPICAL PATCH TD SCH (09:46)
[2018-01-06] MEDS: MINERAL OIL/PETROLAT/WATER TOPICAL CREAM 113 GM JAR TP SCH (09:46)
[2018-01-06] MEDS: ALBUTEROL SO4 2.5/IPRATROPIUM 0.5 INH SOL 3 ML VIAL.NEB. NEB PRN (17:31)
[2018-01-06] MEDS: THIAMINE HCL 100 MG TABLET (FP) PO SCH (21:26)
[2018-01-06] MEDS: OLANZapine 10 MG TABLET PO SCH (21:26)
[2018-01-07] MEDS: cloNIDine HCL 0.1 MG TABLET PO SCH ×2 (06:45→16:59)
[2018-01-07] MEDS ORDERED: PT OWN MED DRAWER 7, Y5N ONE ×2 (08:58→16:12)
[2018-01-07] MEDS: PRENATAL VITAMINS W/ FOLIC ACID TABLET (FP) PO SCH (09:54)
[2018-01-07] MEDS: SERTRALINE HCL 50 MG TABLET (FP) PO SCH (09:54)
[2018-01-07] MEDS: ABACAVIR/DOLUTEGRAVIR/LAMIVUDI (TRIUMEQ) TABLET -NF PO SCH (09:54)
[2018-01-07] MEDS: NICOTINE 14 MG/24 HOURS TOPICAL PATCH TD SCH (09:54)
[2018-01-07] MEDS: amLODIPine BESYLATE 10 MG TABLET (FP) PO SCH (09:54)
[2018-01-07] MEDS: MINERAL OIL/PETROLAT/WATER TOPICAL CREAM 113 GM JAR TP SCH (09:56)
--- NOTE | 2018-01-07 14:25 | PN ---
[facility] Progress Note Note: Patient requesting Belsomra 10mg PO HS PRN to be reordered. Verbal consent given. Belsomra reordered for 3 days for insomnia.
[2018-01-07] MEDS: OLANZapine 10 MG TABLET PO SCH (21:25)
[2018-01-07] MEDS: THIAMINE HCL 100 MG TABLET (FP) PO SCH (21:25)
[2018-01-08] MEDS: cloNIDine HCL 0.1 MG TABLET PO SCH ×2 (06:20→17:06)
[2018-01-08] MEDS: amLODIPine BESYLATE 10 MG TABLET (FP) PO SCH (10:51)
[2018-01-08] MEDS: PRENATAL VITAMINS W/ FOLIC ACID TABLET (FP) PO SCH (10:51)
[2018-01-08] MEDS ORDERED: PT OWN MED DRAWER 7, Y5N ONE ×2 (10:51→10:55)
[2018-01-08] MEDS: NICOTINE 14 MG/24 HOURS TOPICAL PATCH TD SCH (10:51)
[2018-01-08] MEDS: SERTRALINE HCL 50 MG TABLET (FP) PO SCH (10:51)
[2018-01-08] MEDS: MINERAL OIL/PETROLAT/WATER TOPICAL CREAM 113 GM JAR TP SCH (10:54)
[2018-01-08] MEDS: ABACAVIR/DOLUTEGRAVIR/LAMIVUDI (TRIUMEQ) TABLET -NF PO SCH (14:59)
[2018-01-08] MEDS: THIAMINE HCL 100 MG TABLET (FP) PO SCH (21:27)
[2018-01-08] MEDS: SUVOREXANT 10 MG TABLET PO PRN (21:27)
[2018-01-08] MEDS: OLANZapine 10 MG TABLET PO SCH (21:27)
[2018-01-09] MEDS: cloNIDine HCL 0.1 MG TABLET PO SCH ×2 (06:10→17:07)
[2018-01-09] MEDS: SERTRALINE HCL 50 MG TABLET (FP) PO SCH (09:46)
[2018-01-09] MEDS: PRENATAL VITAMINS W/ FOLIC ACID TABLET (FP) PO SCH (09:46)
[2018-01-09] MEDS: ABACAVIR/DOLUTEGRAVIR/LAMIVUDI (TRIUMEQ) TABLET -NF PO SCH (09:46)
[2018-01-09] MEDS: amLODIPine BESYLATE 10 MG TABLET (FP) PO SCH (09:46)
[2018-01-09] MEDS: NICOTINE 14 MG/24 HOURS TOPICAL PATCH TD SCH (09:48)
[2018-01-09] MEDS ORDERED: PT OWN MED DRAWER 7, Y5N ONE (09:50)
[2018-01-09] MEDS: MINERAL OIL/PETROLAT/WATER TOPICAL CREAM 113 GM JAR TP SCH (09:51)
[2018-01-09] MEDS: SUVOREXANT 10 MG TABLET PO PRN (21:19)
[2018-01-09] MEDS: THIAMINE HCL 100 MG TABLET (FP) PO SCH (21:19)
[2018-01-09] MEDS: OLANZapine 10 MG TABLET PO SCH (21:20)
[2018-01-09] MEDS: ALBUTEROL SO4 2.5/IPRATROPIUM 0.5 INH SOL 3 ML VIAL.NEB. NEB PRN (22:52)
[2018-01-10] MEDS: cloNIDine HCL 0.1 MG TABLET PO SCH ×3 (06:29→21:08)
[2018-01-10] MEDS: PRENATAL VITAMINS W/ FOLIC ACID TABLET (FP) PO SCH (09:49)
[2018-01-10] MEDS: amLODIPine BESYLATE 10 MG TABLET (FP) PO SCH (09:49)
[2018-01-10] MEDS: SERTRALINE HCL 50 MG TABLET (FP) PO SCH (09:50)
[2018-01-10] MEDS: ABACAVIR/DOLUTEGRAVIR/LAMIVUDI (TRIUMEQ) TABLET -NF PO SCH (09:51)
[2018-01-10] MEDS ORDERED: PT OWN MED DRAWER 7, Y5N ONE (09:52)
[2018-01-10] MEDS: NICOTINE 14 MG/24 HOURS TOPICAL PATCH TD SCH (09:52)
[2018-01-10] MEDS: MINERAL OIL/PETROLAT/WATER TOPICAL CREAM 113 GM JAR TP SCH (09:52)
--- NOTE | 2018-01-10 12:24 | PN ---
[facility] Progress Note (SOAP) Subjective: c/o htn, still having opioid withdrawal sx would like to restart procardia Objective: 01/10/18 12:23 Vital Signs - 24 hr 01/10/18 01/10/18 01/10/18 00:30 03:30 06:49 Temperature 98.7 F Pulse Rate 76 Respiratory 17 16 18 Rate Blood Pressure 141/94 01/10/18 10:00 Temperature Pulse Rate 75 Respiratory 18 Rate Blood Pressure 111/80 labs reviewed, bp elevated Assessment: 01/10/18 12:24 restart procardia as michelle reports she takes this at home, will continue clonidine for withdrawl while she is here but will not give rx on discharge, patietn aware
[2018-01-10] MEDS: NIFEdipine E.R. 30 MG TABLET (FP) PO SCH (13:13)
[2018-01-10] MEDS: OLANZapine 10 MG TABLET PO SCH (21:08)
[2018-01-10] MEDS: THIAMINE HCL 100 MG TABLET (FP) PO SCH (21:08)
[2018-01-10] MEDS: SUVOREXANT 10 MG TABLET PO PRN (23:13)
[2018-01-11] MEDS ORDERED: PT OWN MED DRAWER 7, Y5N ONE ×2 (09:08→12:07)
[2018-01-11] MEDS: NIFEdipine E.R. 30 MG TABLET (FP) PO SCH (10:03)
[2018-01-11] MEDS: amLODIPine BESYLATE 10 MG TABLET (FP) PO SCH (10:03)
[2018-01-11] MEDS: SERTRALINE HCL 50 MG TABLET (FP) PO SCH (10:04)
[2018-01-11] MEDS: PRENATAL VITAMINS W/ FOLIC ACID TABLET (FP) PO SCH (10:04)
[2018-01-11] MEDS: MINERAL OIL/PETROLAT/WATER TOPICAL CREAM 113 GM JAR TP SCH (10:04)
[2018-01-11] MEDS: NICOTINE 14 MG/24 HOURS TOPICAL PATCH TD SCH (10:04)
[2018-01-11] MEDS: cloNIDine HCL 0.1 MG TABLET PO SCH ×3 (10:04→21:25)
--- NOTE | 2018-01-11 10:27 | PN ---
[facility] Progress Note (SOAP) Subjective: patietn still having htn and protracted opioid withdrawal sx , do4es not want mat with syuboxone but willing to have low dose while in rehab for comfort and to treat withdrawal sx /htn Objective: 01/11/18 10:25 Vital Signs - 24 hr 01/10/18 01/11/18 01/11/18 22:20 00:30 03:30 Temperature Pulse Rate 67 Respiratory 18 18 Rate Blood Pressure 133/77 01/11/18 07:02 Temperature 98.3 F Pulse Rate 79 Respiratory 20 Rate Blood Pressure 149/97 labs reviewed, elevated bp and ox3 nad Assessment: 01/11/18 10:25 oud - start suboxone 2mg daily only while in rehab to treat opioid withdrawal sx , HTN - increase procaria to 60mg daily, cont norvasc 10mg daily, increase clonidine to 0.2mg daily bid hold for bp<90/60 suboxone zhould help control bp will follow
[2018-01-11] MEDS ORDERED: BUPRENORPHINE/NALOXONE 2 MG/0.5 MG FILM PACKET SL ONE (10:45)
[2018-01-11] MEDS: NIFEdipine E.R 60 MG TABLET (UD) PO SCH (10:54)
[2018-01-11] MEDS: ABACAVIR/DOLUTEGRAVIR/LAMIVUDI (TRIUMEQ) TABLET -NF PO SCH (12:08)
[2018-01-11] MEDS: OLANZapine 10 MG TABLET PO SCH (21:26)
[2018-01-11] MEDS: THIAMINE HCL 100 MG TABLET (FP) PO SCH (21:26)
[2018-01-12] MEDS: PRENATAL VITAMINS W/ FOLIC ACID TABLET (FP) PO SCH (09:03)
[2018-01-12] MEDS: SERTRALINE HCL 50 MG TABLET (FP) PO SCH (09:04)
[2018-01-12] MEDS: cloNIDine HCL 0.1 MG TABLET PO SCH ×2 (09:04→21:14)
[2018-01-12] MEDS: BUPRENORPHINE/NALOXONE 2 MG/0.5 MG FILM PACKET SL SCH (09:04)
[2018-01-12] MEDS: NIFEdipine E.R 60 MG TABLET (UD) PO SCH (09:04)
[2018-01-12] MEDS: amLODIPine BESYLATE 10 MG TABLET (FP) PO SCH (09:04)
[2018-01-12] MEDS: MINERAL OIL/PETROLAT/WATER TOPICAL CREAM 113 GM JAR TP SCH (09:05)
[2018-01-12] MEDS: NICOTINE 14 MG/24 HOURS TOPICAL PATCH TD SCH (09:05)
[2018-01-12] MEDS ORDERED: PT OWN MED DRAWER 7, Y5N ONE (09:07)
[2018-01-12] MEDS: ABACAVIR/DOLUTEGRAVIR/LAMIVUDI (TRIUMEQ) TABLET -NF PO SCH (09:07)
[2018-01-12] MEDS: THIAMINE HCL 100 MG TABLET (FP) PO SCH (21:14)
[2018-01-12] MEDS: SUVOREXANT 10 MG TABLET PO PRN (21:14)
[2018-01-12] MEDS: OLANZapine 10 MG TABLET PO SCH (21:14)
[2018-01-13] MEDS: ALBUTEROL SO4 2.5/IPRATROPIUM 0.5 INH SOL 3 ML VIAL.NEB. NEB PRN (05:09)
[2018-01-13 06:41] VITALS: TEMP 98.1
[2018-01-13] MEDS ORDERED: ALBUTEROL SO4 2.5/IPRATROPIUM 0.5 INH SOL 3 ML VIAL.NEB. NEB PRN (07:49)
[2018-01-13] MEDS: cloNIDine HCL 0.1 MG TABLET PO SCH ×2 (09:43→21:35)
[2018-01-13] MEDS: amLODIPine BESYLATE 10 MG TABLET (FP) PO SCH (09:43)
[2018-01-13] MEDS: PRENATAL VITAMINS W/ FOLIC ACID TABLET (FP) PO SCH (09:43)
[2018-01-13] MEDS: SERTRALINE HCL 50 MG TABLET (FP) PO SCH (09:43)
[2018-01-13] MEDS: NIFEdipine E.R 60 MG TABLET (UD) PO SCH (09:43)
[2018-01-13] MEDS: BUPRENORPHINE/NALOXONE 2 MG/0.5 MG FILM PACKET SL SCH (09:43)
[2018-01-13] MEDS: ABACAVIR/DOLUTEGRAVIR/LAMIVUDI (TRIUMEQ) TABLET -NF PO SCH (09:45)
[2018-01-13] MEDS ORDERED: PT OWN MED DRAWER 7, Y5N ONE (09:45)
[2018-01-13] MEDS: MINERAL OIL/PETROLAT/WATER TOPICAL CREAM 113 GM JAR TP SCH (09:46)
[2018-01-13] MEDS: NICOTINE 14 MG/24 HOURS TOPICAL PATCH TD SCH (09:46)
[2018-01-13] MEDS: THIAMINE HCL 100 MG TABLET (FP) PO SCH (21:35)
[2018-01-13] MEDS: OLANZapine 10 MG TABLET PO SCH (21:35)
[2018-01-14 06:55] VITALS: BP 146/85; PULSE 73
[2018-01-14] MEDS ORDERED: PT OWN MED DRAWER 7, Y5N ONE (08:46)
--- NOTE | 2018-01-14 08:54 | PN ---
Psychiatric Progress Note Vital Signs: Vital Signs Period Temp Pulse Resp BP Sys/Vigil Pulse Ox Last 24 Hr 98.1 F-98.1 F 68-74 18-20 131-146/74-85 Date of Session: 01/14/18 Chief Complaint:: "Discharge" HPI: Pt. [facility] for opiate dependence. ROS: Unremarkable. Current Medications: Active Medications Generic Name Dose Route Start Last Admin Trade Name Freq PRN Reason Stop Dose Admin Abacavir/Dolutegravir/Lamivudine 1 each 12/29/17 10:00 01/13/18 09:45 Triumeq (Non-Formulary) PO 1 each DAILY KENZIE Administration Acetaminophen 650 mg 12/25/17 15:33 Tylenol - PO Q4H PRN FEVER Al Hydroxide/Mg Hydroxide 30 ml 12/25/17 15:33 Mylanta Oral Suspension - PO Q6H PRN DYSPEPSIA Albuterol Sulfate 2 puff 12/26/17 17:29 01/02/18 11:09 Ventolin Hfa Inhaler - IH 2 puff Q4H PRN Administration ASTHMA Albuterol/Ipratropium 1 amp 01/13/18 07:49 01/14/18 05:59 Duoneb - NEB 1 amp Q4H PRN Administration SHORTNESS OF BREATH Amlodipine Besylate 10 mg 12/25/17 15:45 01/13/18 09:43 Norvasc - PO 10 mg DAILY KENZIE Administration Buprenorphine/Naloxone 1 each 01/12/18 10:00 01/13/18 09:43 Suboxone 2mg/0.5mg Sl Film - SL 1 each DAILY KENZIE Administration Clonidine 0.2 mg 01/11/18 10:45 01/13/18 21:35 Catapres - PO 0.2 mg BID KENZIE Administration Colloidal Oatmeal 1 applic 01/02/18 17:09 01/02/18 22:14 Aveeno Soap - TP 1 applic DAILY PRN Administration HYGEINE Eucalyptus/Menthol/Phenol/Sorbitol 1 each 12/25/17 15:33 Cepastat Lozenge - MM Q4H PRN SORE THROAT Guaifenesin 10 ml 12/25/17 15:33 Robitussin Dm - PO Q6H PRN COUGH Hydroxyzine Pamoate 50 mg 12/25/17 15:33 Vistaril - PO Q4H PRN AGITATION Ibuprofen 400 mg 12/25/17 15:33 Motrin - PO Q6H PRN Pain Level 4-6 Loperamide HCl 4 mg 12/25/17 15:33 Imodium - PO Q6H PRN DIARRHEA Magnesium Citrate 300 ml 12/25/17 15:33 Citroma - PO Q48H PRN CONSTIPATION Magnesium Hydroxide 30 ml 12/25/17 15:33 Milk Of Magnesia - PO DAILY PRN CONSTIPATION Multi-Ingredient Lotion 1 applic 01/02/18 17:15 01/13/18 09:46 Eucerin (Small Jar) - TP Not Given DAILY KENZIE Nicotine 14 mg 12/26/17 10:00 01/13/18 09:46 Nicoderm Patch - TD Not Given DAILY KENZIE Nicotine Polacrilex 2 mg 12/25/17 15:33 Nicorette Gum - BUC Q2H PRN NICOTINE REPLACEMENT RX Nifedipine 60 mg 01/11/18 10:45 01/13/18 09:43 Procardia Xl - PO 60 mg DAILY KENZIE Administration Olanzapine 20 mg 12/25/17 22:00 01/13/18 21:35 Zyprexa - PO 20 mg HS KENZIE Administration Multivit/Folic Acid/Iron 1 tab 12/26/17 10:00 01/13/18 09:43 Vitamins (Sjr) - PO 1 tab DAILY KENZIE Administration Pseudoephedrine/Triprolidine 1 combo 12/25/17 15:33 Actifed - PO TID PRN NASAL CONGESTION Sertraline HCl 100 mg 12/26/17 10:00 01/13/18 09:43 Zoloft - PO 100 mg DAILY KENZIE Administration Thiamine HCl 100 mg 12/25/17 22:00 01/13/18 21:35 Vitamin B1 - PO 100 mg HS KENZIE Administration Medication(s) Change(s): No. Current Side Effect: No Lab tests ordered: No Lab tests reviewed: Yes Provider note:: Pt. able to complete the inpatient rehabilition program on . She has met her treatment goals and will continue to addresss her issues at [facility] in [place]. Pt is able to understand the consequences of her addiction and the need to make positive changesto her lifestyle in order to maintain abstinence. A script for 30 days will be sent to [facility] in [place] for zoloft 100mg PO daily, and zyprexa 20mg qhs. Pt. is stable for discharge. Total face to face time:: 35 Mental Status Exam - Mental Status Exam Alert and Oriented to: Time, Place, Person Cognitive Function: Good Patient Appearance: Well Groomed Mood: Hopeful, Happy Affect: Mood Congruent Patient Behavior: Appropriate, Cooperative Speech Pattern: Clear, Appropriate Voice Loudness: Normal Thought Process: Goal Oriented Thought Disorder: Not Present Hallucinations: Denies Suicidal Ideation: Denies Homicidal Ideation: Denies Insight/Judgement: Good Sleep: Well Appetite: Good Muscle strength/Tone: Normal Gait/Station: Normal Psychiatric Treatment Plan - Problem List (1) Alcohol dependence Current Visit: No (2) Opioid dependence Current Visit: Yes (3) Nicotine dependence Current Visit: No Qualifiers: (4) Bipolar disorder Current Visit: Yes Comment: History.Off medications for past six years.Lost to follow-up.Currently asymptomatic.Baseline. (5) Substance induced mood disorder Current Visit: Yes
[2018-01-14] MEDS: BUPRENORPHINE/NALOXONE 2 MG/0.5 MG FILM PACKET SL SCH (09:02)
[2018-01-14] MEDS: amLODIPine BESYLATE 10 MG TABLET (FP) PO SCH (09:02)
[2018-01-14] MEDS: SERTRALINE HCL 50 MG TABLET (FP) PO SCH (09:02)
[2018-01-14] MEDS: ABACAVIR/DOLUTEGRAVIR/LAMIVUDI (TRIUMEQ) TABLET -NF PO SCH (09:03)
[2018-01-14] MEDS: cloNIDine HCL 0.1 MG TABLET PO SCH (09:03)
[2018-01-14] MEDS: NIFEdipine E.R 60 MG TABLET (UD) PO SCH (09:03)
[2018-01-14] MEDS: PRENATAL VITAMINS W/ FOLIC ACID TABLET (FP) PO SCH (09:03)
[2018-01-14] MEDS: MINERAL OIL/PETROLAT/WATER TOPICAL CREAM 113 GM JAR TP SCH (09:03)
[2018-01-14] MEDS: NICOTINE 14 MG/24 HOURS TOPICAL PATCH TD SCH (09:03)
== END 2018-01-14 09:30 | disposition home or self-care (01) | DRG 772 ==
LOC: YASAS 14:18 → Y3W 14:19
PROVIDERS: ADMIT Psychiatry & Neurology Psychiatry; ATTEND Psychiatry & Neurology Psychiatry
PROC: HZ42ZZZ Group Counseling for Substance Abuse Treatment, Cognitive-Behavioral (ICD-10-PCS; principal; 2017-12-25)
DX: F11.20 Opioid dependence, uncomplicated (principal); F10.20 Alcohol dependence, uncomplicated; F17.210 Nicotine dependence, cigarettes, uncomplicated; F31.9 Bipolar disorder, unspecified; F19.24 Other psychoactive substance dependence with psychoactive substance-induced mood disorder; I10 Essential (primary) hypertension; J45.909 Unspecified asthma, uncomplicated; Z21 Asymptomatic human immunodeficiency virus [HIV] infection status; B18.2 Chronic viral hepatitis C
CPT/HCPCS: 94640; J0735